=== PATIENT | female | born 1985 | race Caucasian/White ===

== ENCOUNTER → 2018-10-26 12:44 | Outpatient (CLI) | payer OTHER, SELFPAY ==
--- NOTE | 2018-10-26 12:46 | DI.US.S_ITS ---
ULTRASOUND OF RIGHT BREAST: 10/26/2018 CLINICAL: 1 year f/u, post bx. Comparison is made to exams dated: 10/26/2018 mammogram, 09/05/2017 ultrasound biopsy, 09/05/2017 mammogram, 09/05/2017 ultrasound biopsy, 08/18/2017 ultrasound, and 08/18/2017 ultrasound [facility]. Color flow and real-time ultrasound of the right breast were performed. [place] scale images of the real-time examination were reviewed. There is a benign lobulated mass with a circumscribed margin in the right breast at 12 o'clock middle depth 2 cm from the nipple. This lobulated mass is hypoechoic. This abnormality is not significantly changed and correlates as palpated. There is an associated biopsy clip. IMPRESSION: BENIGN There is no sonographic evidence of malignancy. 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 It has remained stable. Recommend initiating screening mammography at age 41. This exam was interpreted at Station ID: [id number]. Electronically Signed By: John Valladares M.D. at/:10/26/2018 14:28:31 Ultrasound BI-RADS: 2 Benign
--- NOTE | 2018-10-26 12:46 | DI.MG.S_ITS ---
BILATERAL DIGITAL DIAGNOSTIC MAMMOGRAM 3D/2D SHORT-TERM FOLLOW-UP: 10/26/2018 CLINICAL: One year follow up post bilateral biopsy. Comparison is made to exams dated: 08/18/2017 ultrasound, 08[facility]18[facility]2017 ultrasound[facility] The tissue of both breasts is extremely dense, which lowers the sensitivity of mammography. There is a stable 3.5 cm oval equal density mass with a circumscribed margin in the right breast at 12 o'clock anterior depth. There is a biopsy clip associated with the mass with pathology diagnosis of a benign fibroadenoma. There is a stable 7 mm round low density mass with a circumscribed margin in the left breast central to the nipple anterior depth. There is a biopsy clip associated with the mass with pathology indicating a benign fibroadenoma. No other significant masses or calcifications are seen in either breast. IMPRESSION: INCOMPLETE: NEEDS ADDITIONAL IMAGING EVALUATION The stable 3.5 cm oval equal density mass in the right breast at 12 o'clock anterior depth is consistent with a biopsy proven fibroadenoma. An ultrasound is scheduled to document stablility of this mass. The stable 7 mm round low density mass in the left breast central to the nipple anterior depth is consistent with a biopsy proven fibroadenoma and an ultrasound is scheduled to follow this examination to document stability. This exam was interpreted at Station ID: [id number]. NOTE: For mammograms, a report in lay terms will be sent to the patient. Approximately 15% of breast malignancies will not be visualized mammographically. In the management of a palpable breast mass, a negative mammogram must not discourage biopsy of a clinically suspicious lesion. Electronically Signed By: John Valladares M.D. aty/:10/26/2018 14:23:47 ACR BI-RADS Category 0: Incomplete [id number]
--- NOTE | 2018-10-26 12:46 | DI.US.S_ITS ---
ULTRASOUND OF LEFT BREAST: 10/26/2018 CLINICAL: 1 year f/u, post bx. Comparison is made to exams dated: 10/26/2018 ultrasound, 10/26/2018 mammogram, 09/05/2017 ultrasound biopsy, 09/05/2017 mammogram, 09/05/2017 ultrasound biopsy, and 08/18/2017 [facility]. Color flow and real-time ultrasound of the left breast were performed. [place] scale images of the real-time examination were reviewed. There is a benign oval mass with a circumscribed margin in the left breast at 11 o'clock anterior depth 2 cm from the nipple. This oval mass is hypoechoic. This abnormality is not significantly changed. Color flow imaging demonstrates that there is no vascularity present. IMPRESSION: BENIGN There is no sonographic evidence of malignancy. The oval mass in the left breast is consistent with a biopsy proven fibroadenoma and is benign. Recommend initiating screening mammography at age 41. This exam was interpreted at Station ID: [id number]. Electronically Signed By: John Valladares M.D. at/:10/26/2018 14:26:30 Ultrasound BI-RADS: 2 Benign
== END ==
PROVIDERS: PCP Specialist; Visit Provider Specialist
DX: R92.8 Other abnormal and inconclusive findings on diagnostic imaging of breast (principal); D24.2 Benign neoplasm of left breast; D24.1 Benign neoplasm of right breast
CPT/HCPCS: 76642; 77066; G0279

== ENCOUNTER → 2020-04-01 09:38 | Outpatient (CLI) | payer OTHER, SELFPAY ==
[2020-04-01 11:58] LABS: Alanine Aminotransferase 61 IU/L (<35); Albumin 4.4 g/dL (3.5-5.0); Albumin Globulin Ratio 1.4 (1.0-2.8); Alkaline Phosphatase 76 U/L (38-126); Aspartate Aminotransferase 48 IU/L (14-36); BUN Creatinine Ratio 22.6 (6-22); Bilirubin Total 0.7 mg/dL (0.2-1.3); Blood Urea Nitrogen 14 mg/dL (7-17); Calcium 8.8 mg/dL (8.4-10.2); Carbon Dioxide 26 mmol/L (22-32); Chloride 104 mmol/L (98-107); Estimated Glomerular Filt Rate > 60.0 mL/min (>60); Globulin 3.2 g/dL (1.7-4.1); Glucose 106 mg/dL (70-100); HEMOLYSIS < 15 (0-50); Potassium 4.1 mmol/L (3.4-5.1); Sodium 136 mmol/L (137-145); Total Protein 7.6 g/dL (6.3-8.2)
[2020-04-01 12:07] LABS: Add Manual Diff / Slide Review NO; Basophils Absolute Auto 100 /uL (0-100); Basophils Percent Auto 0.8 % (0-2); Eosinophils Absolute Auto 200 /uL (0-450); Eosinophils Percent Auto 2.6 % (2-4); Hematocrit 45.1 % (36-46); Hemoglobin 14.9 g/dL (12.0-16.0); Lymphocytes Absolute Auto 3000 /uL (1100-4500); Lymphocytes Percent Auto 42.2 % (25-40); Mean Corpuscular HGB Conc 33.1 % (30-36); Mean Corpuscular Hemoglobin 28.6 PG (26-34); Mean Corpuscular Volume 86.4 fL (80-100); Monocytes Absolute Auto 600 /uL (0-900); Monocytes Percent Auto 7.9 % (3-14); Neutrophils Absolute Auto 3300 /uL (1500-7000); Neutrophils Percent Auto 46.5 % (50-75); Platelet Count 193 X10^3/uL (150-400); Red Blood Cell Count 5.22 X10^6/uL (4.0-5.2); Red Cell Distribution Width 14.1 % (11.6-14.8)
[2020-04-01 12:17] LABS: Free T4, Direct Thyroxine 1.21 ng/dL (0.78-2.19)
[2020-04-01 12:31] LABS: Thyroid Stimulating Hormone 1.93 uIU/mL (0.47-4.68)
== END ==
PROVIDERS: PCP Specialist; Referring Provider Specialist; Visit Provider Specialist
DX: R53.83 Other fatigue (principal); R63.5 Abnormal weight gain
CPT/HCPCS: 36415; 80053; 84439; 84443; 85025